=== PATIENT | female | born 1945 | race Caucasian/White ===

== ENCOUNTER 2022-02-02 06:48 | Inpatient (IN) | payer OTHER ==
[2022-01-26 17:18] VITALS: BMI 17.4
[2022-02-02] MEDS ORDERED: BUPIVACAINE HCL/PF 0.5% (5 MG/ML) 30 ML VIAL IJ ONE (07:36)
[2022-02-02] MEDS ORDERED: DEXAMETHASONE SOD PHOSPHATE 10 MG/1 ML VIAL ONE (07:36)
[2022-02-02] MEDS ORDERED: MIDAZOLAM HCL 2 MG/2 ML SINGLE DOSE VIAL ONE (07:36)
[2022-02-02] MEDS ORDERED: DEXMEDETOMIDINE HCL 200 MCG/2 ML IVPB ONE (08:16)
[2022-02-02] MEDS ORDERED: FENTANYL CITRATE/PF 50 MCG/ML VIAL ONE ×2 (08:17→08:33)
[2022-02-02] MEDS ORDERED: BUPIVACAINE HCL/PF 0.5% (5MG/ML) 10 ML VIAL ONE (08:33)
[2022-02-02] MEDS ORDERED: ROCURONIUM BROMIDE 50 MG/5 ML SYRINGE ONE (08:37)
[2022-02-02] MEDS ORDERED: PROPOFOL 80 ML ONE (08:37)
[2022-02-02] MEDS ORDERED: ONDANSETRON 4 MG/2 ML VIAL ONE (08:47)
[2022-02-02] MEDS ORDERED: ceFAZolin SODIUM 1 GM VIAL ONE ×2 (08:47→10:30)
[2022-02-02] MEDS ORDERED: TRANEXAMIC ACID 1000 MG/10 ML VIAL ONE ×2 (08:47→10:35)
[2022-02-02] MEDS ORDERED: VANCOMYCIN 1,000 MG VIAL (RESTRICTED TO ID ONLY) ONE (09:01)
[2022-02-02] MEDS ORDERED: oxyCODONE HCL 5 MG TABLET PO PRN (11:28)
[2022-02-02] MEDS ORDERED: ONDANSETRON 4 MG/2 ML VIAL IVPUSH PRN (11:28)
[2022-02-02] MEDS ORDERED: ONDANSETRON 4 MG TABLET PO PRN (11:37)
[2022-02-02] MEDS ORDERED: MAG HYDROX/AL HYDROX/SIMETH 30 ML UNIT-DOSE CUP PO PRN (11:38)
[2022-02-02] MEDS ORDERED: MAGNESIUM HYDROX 2400MG/30ML ORAL SUSPENSION 30 ML CUP PO PRN (11:38)
[2022-02-02] MEDS ORDERED: LACTATED RINGERS SOLUTION 1,000 ML IV SCH (11:45)
[2022-02-02] MEDS ORDERED: MEPERIDINE HCL CARPU-JECT 50 MG/1 ML DISP.SYRIN IVPUSH ONE ×2 (11:50→12:05)
[2022-02-02] MEDS ORDERED: ACETAMINOPHEN 500 MG TABLET (FP) ONE (11:58)
[2022-02-02] MEDS: ACETAMINOPHEN 500 MG TABLET (FP) PO SCH ×3 (13:11→22:39)
[2022-02-02] MEDS ORDERED: MEPERIDINE HCL 25 MG/ML VIAL IVPUSH SCH (13:15)
[2022-02-02] MEDS: oxyCODONE HCL 5 MG TABLET PO PRN ×3 (15:07→22:44)
[2022-02-02] MEDS: CEFAZOLIN SODIUM 2 GM in DEXTROSE 5%-WATER 100 ML IVPB SCH ×2 (16:50→22:39)
[2022-02-02] MEDS: SENNOSIDES/DOCUSATE COMBO (SENNA PLUS) TABLET (UD) PO SCH (22:10)
[2022-02-02] MEDS: CELECOXIB 100 MG CAPSULE PO SCH (22:10)
[2022-02-02] MEDS: ASPIRIN 325 MG TABLET PO SCH (22:12)
[2022-02-02] MEDS ORDERED: ASPIRIN 81 MG CHEWABLE TABLETS ONE (22:12)
[2022-02-03] MEDS: CEFAZOLIN SODIUM 2 GM in DEXTROSE 5%-WATER 100 ML IVPB SCH (04:00)
[2022-02-03] MEDS: ACETAMINOPHEN 500 MG TABLET (FP) PO SCH ×3 (06:52→18:04)
[2022-02-03] MEDS: oxyCODONE HCL 5 MG TABLET PO PRN ×3 (08:16→18:04)
[2022-02-03 08:26] LABS: ALBUMIN 3.5 g/dl (3.4-5.0); BILIRUBIN,TOTAL 0.7 mg/dl (0.2-1); CALCIUM 9.3 mg/dl (8.5-10); CREATININE 0.7 mg/dl (0.55-1.3)
[2022-02-03] MEDS: FOLIC ACID 1 MG TABLET (FP) PO SCH (10:47)
[2022-02-03] MEDS: CELECOXIB 100 MG CAPSULE PO SCH ×2 (10:47→22:12)
[2022-02-03] MEDS: SENNOSIDES/DOCUSATE COMBO (SENNA PLUS) TABLET (UD) PO SCH ×2 (10:47→22:12)
[2022-02-03] MEDS: PANTOPRAZOLE 40 MG TABLET PO SCH (10:47)
[2022-02-03] MEDS: VALSARTAN 160 MG TABLET PO SCH (10:53)
[2022-02-03] MEDS: ASPIRIN 325 MG TABLET PO SCH (10:56)
[2022-02-03] MEDS: ASPIRIN COATED 81 MG TABLET.EC PO SCH ×2 (10:57→22:11)
[2022-02-03] MEDS ORDERED: ASPIRIN 81 MG CHEWABLE TABLETS PO SCH (11:00)
[2022-02-03 11:30] LABS: BASO % 0.3 % (0-2.0); HEMATOCRIT 36.4 % (32.4-45.2); HEMOGLOBIN 12.2 GM/dL (10.7-15.3); LYMPH % 6.9 % (8-40); MCH 32.3 pg (25.7-33.7); MCHC 33.6 g/dl (32.0-36.0); MEAN CELL VOLUME 96.1 fl (80-96); MEAN PLT VOLUME 8.1 fl (7.5-11.1); NEUT % 78.8 % (42.8-82.8); PLATELET COUNT 244 10^3/uL (134-434); RBC 3.78 M/mm3 (3.60-5.2); RDW 13.1 % (11.6-15.6); WHITE BLOOD COUNT 9.9 K/mm3 (4.0-10.0)
[2022-02-03] MEDS: ONDANSETRON 4 MG/2 ML VIAL IVPUSH PRN (12:21)
[2022-02-03] MEDS ORDERED: diphenhydrAMINE HCL 25 MG CAPSULE (FP) PO ONE (23:04)
[2022-02-04] MEDS: ACETAMINOPHEN 500 MG TABLET (FP) PO SCH ×3 (06:00→12:09)
[2022-02-04] MEDS: ONDANSETRON 4 MG/2 ML VIAL IVPUSH PRN ×2 (06:02→12:09)
[2022-02-04 08:14] LABS: ALBUMIN 3.1 g/dl (3.4-5.0); BILIRUBIN,TOTAL 0.7 mg/dl (0.2-1); CALCIUM 8.8 mg/dl (8.5-10); CREATININE 0.8 mg/dl (0.55-1.3); TOT PROT 5.5 g/dl (6.4-8.2)
[2022-02-04] MEDS ORDERED: ONDANSETRON *ODT* 4 MG TABLET SL PRN (08:31)
[2022-02-04] MEDS: PANTOPRAZOLE 40 MG TABLET PO SCH (09:59)
[2022-02-04] MEDS ORDERED: TRIAMCINOLONE ACET 0.1% OINT 15 GM TUBE TP SCH (10:00)
[2022-02-04] MEDS ORDERED: LORATADINE 10 MG TABLET PO SCH (10:00)
[2022-02-04 11:09] LABS: BASO % 0.4 % (0-2.0); EOS % 0.3 % (0-4.5); HEMATOCRIT 34.3 % (32.4-45.2); HEMOGLOBIN 11.8 GM/dL (10.7-15.3); LYMPH % 5.7 % (8-40); MCHC 34.3 g/dl (32.0-36.0); MEAN CELL VOLUME 96.3 fl (80-96); MEAN PLT VOLUME 7.6 fl (7.5-11.1); MONO % 13.2 % (3.8-10.2); NEUT % 80.4 % (42.8-82.8); PLATELET COUNT 186 10^3/uL (134-434); RBC 3.57 M/mm3 (3.60-5.2); RDW 13.4 % (11.6-15.6)
[2022-02-04] MEDS: SENNOSIDES/DOCUSATE COMBO (SENNA PLUS) TABLET (UD) PO SCH (12:01)
[2022-02-04] MEDS: ASPIRIN COATED 81 MG TABLET.EC PO SCH (12:01)
[2022-02-04] MEDS: VALSARTAN 160 MG TABLET PO SCH (12:01)
[2022-02-04] MEDS: FOLIC ACID 1 MG TABLET (FP) PO SCH (12:17)
[2022-02-04] MEDS: CELECOXIB 100 MG CAPSULE PO SCH (12:17)
[2022-02-04 14:04] VITALS: BP 138/62; PULSE 67; RESP 16; TEMP 98.5
== END 2022-02-04 15:25 | DRG 470 ==
LOC: FM/S 06:48 → UNDOADMIN 06:48
PROVIDERS: ADMIT Orthopaedic Surgery Orthopaedic Surgery of the Spine; ATTEND Orthopaedic Surgery Orthopaedic Surgery of the Spine
PROC: 0SRB0JZ Replacement of Left Hip Joint with Synthetic Substitute, Open Approach (ICD-10-PCS; principal; 2022-02-02 09:38)
DX: M16.12 Unilateral primary osteoarthritis, left hip (principal); M79.7 Fibromyalgia; I10 Essential (primary) hypertension; E78.5 Hyperlipidemia, unspecified; M81.0 Age-related osteoporosis without current pathological fracture; G89.29 Other chronic pain; R29.6 Repeated falls
CPT/HCPCS: 36415; 73502-TC-LT-FY; 80048; 80053; 80061; 83036; 85025; 88305-TC; 88311-TC; 94760; 97010-GP; 97116-GP; 97162-GP; C1776; C9803-CS; J1100; U0003; U0005